=== PATIENT | male | born 2005 | race Caucasian/White ===

== ENCOUNTER 2024-02-09 17:11 | Emergency (ER) | payer MEDICAID, SELFPAY ==
[2024-02-09 17:11] VITALS: BP 124/86; PULSE 112; RESP 16; TEMP 36.8; O2SAT 100; BMI 24.6
--- NOTE | 2024-02-09 17:39 | EDS_ITS ---
HPI HPI - URI History of Present Illness Chief Complaint: Sore Throat Informant: patient Onset/Context/Timing Onset: Weeks (2.5) Context: Gradual Onset Quality: Sharp Location: Throat, left side worse than right Worsened by: Swallowing Relieved by: NSAIDs and - (Antibiotics) Associated Symptoms Associated Symptoms: Positive for Nasal Congestion and Sinus Pressure; Negative for Headache, Myalgias, Nausea, Vomiting, Diarrhea, Shortness of Breath, Chest Pain, Nonproductive cough, Hemoptysis or Productive Cough Narrative Narrative: Patient presents with a sore throat that has been constant for the past 2-1/2 weeks. Patient states he went to the urgent care and was given a prescription for an antibiotic. Patient states his pain got better after taking the antibiotic. Patient states the pain is mainly on the left side of his throat. Patient also admits to some pressure over his sinuses which is also worse on the left. Patient states his pain is worse with any swallowing. Patient admits to some nasal congestion. Patient denies any fevers or chills. Patient denies any chest pain or shortness of breath. Patient denies any cough. ROS ROS ED Constitutional Constitutional ED: Denies chills or fever(s) Eyes Eyes: Denies blurry vision or change in vision ENT ENT ED: Reports sore throat; Denies rhinorrhea Cardiovascular Cardiovascular: Denies chest pain or palpitations Respiratory/Chest Respiratory/Chest: Denies cough or dyspnea Gastrointestinal Gastrointestinal: Denies nausea or vomiting Genitourinary Genitourinary ED: Denies dysuria or hematuria Musculoskeletal Musculoskeletal: Denies back pain or neck pain Integumentary Denies abscess or rash Neurologic Neurologic: Denies headache(s) or weakness Allergic/Immunologic Allergic/Immunologic ED: Denies mouth swelling or urticaria [facility] Medical History (Updated 02/09/24 @ 21:[address] Topher Ovalles, DO) ADHD Home Medications ?Medication ?Instructions ?Recorded ?Last Taken ?Type amoxicillin 875 mg-potassium 875 mg PO Q12H #20 TABLETS 02/09/24 Unknown Rx clavulanate 125 mg tablet dextroamphetamine-amphetamine 20 1 tab PO BID 02/09/24 Unknown History mg tablet Allergy/AdvReac Type Severity Reaction Status Date / Time No Known Allergies Allergy Verified 02/09/24 17:11 Surgical History no surgical history no surgical history Social History Smoking Status: Never smoker alcohol intake: never EXAM Physical Exam Const Vital Signs: 02/09/24 17:11 02/09/24 19:11 02/09/24 20:53 Temperature 98.2 F Temperature Source Temporal Pulse Rate 112 H 106 H 105 H Respiratory Rate 16 18 18 Blood Pressure 124/86 H 122/68 H 128/74 H Blood Pressure Mean 98 86 92 Pulse Ox 100 94 94 Oxygen Delivery Method Room Air Room Air Room Air Positive well nourished and well developed General Appearance ED: well developed and NAD HEENT Reports moist mucous membranes normocephalic and atraumatic Throat: tonsils abnormal bilateral erythema, exudates and hypertrophy Eyes PERRL and EOMs intact bilaterally Neck no lymphadenopathy, supple, no meningeal signs and no JVD Resp normal respiratory effort and clear to auscultation bilaterally Cardio Rate: regular rate Rhythm: regular rhythm Neuro oriented x3, CN's II-XII intact bilaterally and no sensory deficits noted Sensorium / Orientation: alert Motor Exam: strength 5/5 throughout Psych mental status grossly normal MDM MDM MDM Narrative Medical decision making narrative: Differential diagnosis includes tonsillitis, pharyngitis, peritonsillar abscess, and sinusitis. CT scan of soft tissue neck will be obtained to assess for peritonsillar abscess. CBC will be obtained to assess for leukocytosis and anemia. Basic metabolic profile will be obtained to assess for electrolyte abnormality and renal function. Rapid strep will be obtained to assess for s trep pharyngitis. Lab Data Attestation: I reviewed the patient's lab results. Lab results narrative: CBC was reviewed. There is a leukocytosis of 15.9. The remainder was within normal limits. Basic metabolic profile was reviewed and was within normal limits. Rapid strep was reviewed and was negative. Labs: Laboratory Results - last 24 hr 02/09/24 18:02 WBC 15.9 H RBC 4.53 L Hgb 13.2 Hct 38.6 L MCV 85.2 MCH 29.1 MCHC 34.2 RDW Std Deviation 37.2 RDW Coeff of Dori 12.2 Plt Count 421 MPV 8.7 Immature Gran % (Auto) 0.600 Neut % (Auto) 71.2 H Lymph % (Auto) 18.6 L [place] % (Auto) 7.1 Eos % (Auto) 1.8 Baso % (Auto) 0.7 Absolute Neuts (auto) 11.3 H Absolute Lymphs (auto) 2.95 Nucleated RBC % 0 Sodium 139 Potassium 3.7 Chloride 106 Carbon Dioxide 28.0 Anion Gap 5 BUN 11 Creatinine 0.82 Estim Creat Clear Calc 139.02 Est GFR (MDRD) Af Amer 153 Est GFR (MDRD) Non-Af 127 BUN/Creatinine Ratio 13.5 Glucose 100 Calcium 9.7 Radiography Diagnostic Testing: Clinical Impression(s) from Imaging Studies Soft Tissue Neck CT 02/09/24 17:47 IMPRESSION: Tonsillitis and reactive lymphadenopathy Electronically Signed: Royal Brown MD at 20:05 EST Reading Location ID and State: [facility] / [place] Tel , Service support , CT scan of the soft tissue neck was obtained. There is tonsillitis and lymphadenopathy. There is no evidence of any abscess. This was interpreted by the radiologist and was also independently reviewed by myself. Treatment and Re-Evaluation Narrative: Patient was given a dose of Unasyn here. Patient was feeling better on reevaluation. Patient was given a prescription for Augmentin. Patient was instructed to follow-up with his primary care physician in 5 to 7 days. Patient was instructed to return if worse in any way. Patient understood and was agree able with plan. All questions were answered. Discharge Plan Triage Chief Complaint: Sore Throat ED Provider: Topher Ovalles Dx/Rx/DC Orders Clinical Impression: Acute tonsillitis, ADHD Instructions: ED Tonsillitis Prescriptions: New amoxicillin-pot clavulanate 875-125 mg tablet 875 mg PO Q12H Qty: 20 0RF No Action dextroamphetamine-amphetamine 20 mg tablet 1 tab PO BID Primary Care Provider: Care Physician,No Primary Referrals: Hansa Corcoran MD [Med Staff - Microbial Specialist] - 5-7 Days Care Physician,No Primary [Primary Care Provider] - Print Language: [place] Disposition Disposition: Home, Self Care
--- NOTE | 2024-02-09 17:47 | CT_ITS ---
STUDY: CT SOFT TISSUE NECK WITH CONTRAST REASON FOR EXAM: Male, 18 years old. Pharyngeal edema RADIATION DOSAGE (If Supplied By Facility): CTDIvol = ( 16.66 ) mGy, DLP = ( 520.21 ) mGycm TECHNIQUE: The patient was scanned in a multi-detector CT scanner. High resolution transaxial imaging was performed following intravenous administration of IV 75mL Isovue-370. Sagittal and coronal images were reconstructed. Individualized dose optimization techniques were used for this CT. The protocol utilizes one or more of the following dose reduction techniques: automated exposure control, adjustment of mA and/or kV according to patient size,and/or use of iterative reconstruction technique. COMPARISON: None. FINDINGS: Normal bilateral parotid glands. Normal bilateral billboard poster helper spaces. Normal bilateral parapharyngeal spaces. Normal bilateral carotid spaces. Normal bilateral sublingual and submandibular glands and spaces. Normal visualized nasopharynx. Normal retropharyngeal space. Normal perivertebral space. Bilateral tonsillar hypertrophy. No abscess noted. The visualized tongue, tongue base and oropharynx are normal. There are minimally enlarged lymph nodes of the neck, with preservation of normal radha architecture, consistent with a reactive lymph hyperplasia. There is no demonstrated solid or cystic mass lesion. There is no abnormal contrast enhancement. Normal epiglottis, bilateral vallecula and hypopharynx. The pre-epiglottic and paraglottic adipose spaces are normal. Normal visualized bilateral piriform sinuses, aryepiglottic folds, vocal cords, and arytenoid-cricoid articulations. Normal subglottic trachea. Normal bilateral lobes of the thyroid gland. Normal visualized pulmonary apices. Normal visualized paranasal sinuses. Normal visualized cervical spine. CT/Soft Tissue Neck WITH Contrast IMPRESSION: Tonsillitis and reactive lymphadenopathy Electronically Signed: Royal Brown MD at 20:05 EST ,
[2024-02-09 18:14] LABS: Absolute Lymphocyte Count 2.95 X10^3/uL (0.83-4.51); Absolute Neutrophil Count 11.3 X10^3/uL (2.0-7.7); Basophil# 0.11 X10^3/uL; Basophil% 0.7 % (0-1); Eosinophil# 0.28 X10^3/uL; Eosinophils% 1.8 % (0-5); Hematocrit 38.6 % (40-54); Hemoglobin 13.2 g/dL (13.0-16.5); Lymphocyte # 2.95 X10^3/ul (0.83-4.51); Lymphocyte % 18.6 % (19-41); Mean Corp Hgb Conc 34.2 g/dL (32-36); Mean Corpuscular Hgb 29.1 pg (27.0-32.0); Mean Corpuscular Volume 85.2 fL (80-94); Mean Platelet Vol. 8.7 fl (6.2-12.0); Monocyte# 1.13 X10^3/uL; Monocyte% 7.1 % (0-10); NRBC Flagged by Analyzer 0 % (0-5); Neutrophil # 11.32 X10^3/uL (2.7-7.7); Neutrophil % 71.2 % (47-70); Platelet Count 421 K/mm3 (150-450); RBC Distribution Width CV 12.2 % (11.6-14.6); RBC Distribution Width SD 37.2 fl (35.1-43.9); Red Blood Count 4.53 M/mm3 (4.6-6.2); White Blood Count 15.9 K/mm3 (4.4-11.0)
[2024-02-09 18:29] LABS: Anion Gap 5 (5-15); BUN 11 mg/dL (7-18); BUN/Creat Ratio 13.5 RATIO (10-20); Calcium,Total 9.7 mg/dL (8.5-10.1); Chloride 106 mmol/L (98-107); Creatinine, Serum 0.82 mg/dL (0.70-1.30); EST Glomerular Filtration Rate 127 mL/min (>60); Est Glom Filt Rate - Afr Amer 153 mL/min (>60); Estimated Creatinine Clearance 139.02 ml/min; Glucose 100 mg/dL (74-106); Potassium 3.7 mmol/L (3.5-5.1); Sodium Level 139 mmol/L (136-145)
[2024-02-09] MEDS: Ampicillin/Sulbactam 3 GM in 0.9% Normal Saline (100mL MB+) 100 ML IV (18:31)
[2024-02-09 19:11] VITALS: BP 122/68; PULSE 106; RESP 18; O2SAT 94
[2024-02-09 20:53] VITALS: BP 128/74; PULSE 105; RESP 18; O2SAT 94
[2024-02-09 21:07] VITALS: BP 128/74; PULSE 105; RESP 18; TEMP 36.8; O2SAT 94
--- NOTE | 2024-02-09 21:14 | ED.RN ---
Meds to bed slip sent for patient.
== END 2024-02-09 21:25 | disposition home or self-care (01) ==
PROVIDERS: Emergency Provider Emergency Medicine; Visit Provider Emergency Medicine
DX: J03.90 Acute tonsillitis, unspecified (principal); F90.9 Attention-deficit hyperactivity disorder, unspecified type
CPT/HCPCS: 70491; 80048; 85025; 87651; 96365; 99283; Q9967; A4216; J0295

== ENCOUNTER 2024-06-01 01:14 | Emergency (ER) | payer MEDICAID, SELFPAY ==
[2024-06-01 01:14] VITALS: BP 122/76; PULSE 95; RESP 18; TEMP 36.7; O2SAT 100; BMI 25.2
--- NOTE | 2024-06-01 01:25 | EX.ED.VIS.UR ---
HPI HPI - URI History of Present Illness Chief Complaint: Sore Throat Narrative Narrative: 27-year-old male past medical history of ADHD presents with sore throat and difficulty swallowing/tonsillitis that he has had all day today (yesterday). He relates history that a few months ago he was diagnosed with tonsillitis. He states he had gone to urgent care, and sent to the emergency department because they thought that the swelling was cutting off his airway. He started with a scratchy throat and soreness, and it has progressed to worsening pain with swallowing. No fevers or chills. No other symptoms. He states he feels very similar so he feels he has tonsillitis. ROS ROS ED ROS Narrative Review of systems positive for sore throat, pain with swallowing. Perhaps subjective fever but no documented fever. Denies other symptoms. [facility] Medical History ADHD Home Medications ?Medication ?Instructions ?Recorded ?Last Taken ?Type dextroamphetamine-amphetamine 20 1 tab PO BID 02/09/24 Unknown History mg tablet Allergy/AdvReac Type Severity Reaction Status Date / Time No Known Allergies Allergy Verified 06/01/24 01:15 Social History Smoking Status: Never smoker alcohol intake: never EXAM Physical Exam Narrative Exam Narrative: Afebrile. Vital signs noted. Nontoxic-appearing. Cardiovascular examination reveals a regular rate and rhythm. Lungs are clear to auscultation bilaterally. Abdomen is soft and nontender with normal active bowel sounds. HEENT examination reveals neck to be soft and supple without meningismus. Mild cervical lymphadenopathy. Positive tonsillar exudate with mild swelling. Airway patent. No drooling or trismus. No peritonsillar swelling. Const Vital Signs: 06/01/24 01:14 Temperature 98.1 F Temperature Source Oral Pulse Rate 95 Respiratory Rate 18 Blood Pressure 122/76 H Blood Pressure Mean 91 Pulse Ox 100 Oxygen Delivery Method Room Air MDM MDM MDM Narrative Medical decision making narrative: I reviewed the patient's prior ED visit. He did have CT and laboratory work performed but his symptoms were ongoing for 2-1/2 weeks at that time. He was discharged with Augmentin. Differential diagnosis does include strep pharyngitis versus viral pharyngitis. I have very low suspicion for retropharyngeal abscess. I do not feel he requires laboratory work and imaging as his pulse ox is 100% on room air, and there is no clinical sign of obstruction. His symptoms started today/yesterday within the last 24 hours. He was given a dose of oral Decadron 8 mg. Rapid strep was obtained. There was slight delay in results, so I called lab that was informed that his rapid strep is negative. At this point in time, I do not feel he requires antibiotics. Treat will be symptomatic. He was given a dose of Decadron here which should last him a few days. He was also given the number to otolaryngology to follow-up with. He can follow-up with his primary care provider. Return instructions to the emergency department were reviewed. I also offered to write him a note for work but he declined. Disposition is discharged home in stable condition. History & Record Review Discussion w/independent historian: Patient Discharge Plan Triage Chief Complaint: Sore Throat ED Provider: Giovanny Bella Dx/Rx/DC Orders Clinical Impression: Pharyngitis, Exudative tonsillitis Instructions: Tonsillitis in Adults, ED Pharyngitis, Viral Prescriptions: No Action dextroamphetamine-amphetamine 20 mg tablet 1 tab PO BID Primary Care Provider: VARUN MENDEZ Referrals: Royal Wilson MD [Med Staff - Active Staff] - 3-5 Days if not improving Care Physician,No Primary [Non-Staff] - Activity Restrictions/Additional Instructions: Drink plenty of oral fluids. Tylenol or ibuprofen as needed for pain and fever. You have been given Decadron orally which should last you a few days and help with your tonsillar swelling. Your strep was negative so you do not require antibiotics. Follow-up with otolaryngology. Return with difficulty swallowing, new or worsening symptoms. Print Language: Citizen Of [place] Disposition Disposition: Home, Self Care
[2024-06-01] MEDS: dexAMETHasone 4 MG Tablet 8 MG PO (01:51)
[2024-06-01 03:02] VITALS: BP 110/76; PULSE 80; RESP 16; TEMP 36.2; O2SAT 99
== END 2024-06-01 03:06 | disposition home or self-care (01) ==
PROVIDERS: Emergency Provider Emergency Medicine; PCP Family Medicine; Visit Provider Emergency Medicine
DX: J03.90 Acute tonsillitis, unspecified (principal); F90.9 Attention-deficit hyperactivity disorder, unspecified type; Z79.899 Other long term (current) drug therapy
CPT/HCPCS: 87651; 99282